=== PATIENT | female | born 1975 | race Caucasian/White ===

== ENCOUNTER 2017-02-21 21:33 | Emergency (ER) | payer SELFPAY ==
--- NOTE | ~2017-02-21 | ER ---
[facility] AGE[facility] 42 Y [address] ROOM: [place] [address] LOCATION: ED ADMIT DATE: 02/21/2017 ER/Outpatient Report DISCHARGE DATE: 02/21/2017 FAMILY PHYSICIAN: Jonathon Philip MD ATTENDING PHYSICIAN: Trev San Time of Arrival: 2137 hours. Time of Evaluation: 2146 hours. CHIEF COMPLAINT: Left leg swelling. HISTORY OF PRESENT ILLNESS: The patient states that she has had problems with varicose veins for the past several years, but since 02/18/2017, it has become more swollen, firm, and painful with activity. ALLERGIES: SHE HAS NO KNOWN ALLERGIES. CURRENT MEDICATIONS: No current medications. PAST MEDICAL HISTORY: Hypothyroidism. PAST SURGERIES: Tonsillectomy, cholecystectomy, , and hernia repair. SOCIAL HISTORY: She states she quit smoking 4 years ago. Only drinks alcohol on an occasional basis. Denies use of drugs. ROS: All negative other than those mentioned in the HPI. PHYSICAL EXAMINATION: VITAL SIGNS: She weighed 169 kg, blood pressure is 130/78, pulse is 64, respirations 16, temperature of 98.9, O2 saturation was 93% on room air. GENERAL: She is awake, alert, and oriented x4. SKIN: [place], warm, and dry. RESPIRATIONS: Even and nonlabored. EXTREMITIES: The patient has round, raised varicosity that is not draining at this time. It is on the left lower leg anterior portion just below the knee. She has strong pedal pulses. Area is slightly reddened around it. It is not PATIENT'S NAME: [facility] AGE: 42 Y [address] ROOM: [place] [address] LOCATION: ED ADMIT DATE: 02/21/2017 ER/Outpatient Report DISCHARGE DATE: 02/21/2017 FAMILY PHYSICIAN: Jonathon Philip MD ATTENDING PHYSICIAN: Trev San warm to touch. IMPRESSION: Inflamed varicose vein. PLAN: Home, rest, ice or heat to the area. Prescription was written for ibuprofen for inflammation and [place] for pain. She is to follow up with her primary provider or surgeon. She verbalized understanding. JENNIFER SWANSON MD DJ/tuan /[id number] d: 02/22/17 0308 t: 02/24/17 1826, OUTPATIENT REPORT
== END 2017-02-21 22:03 | disposition disaster alternative care site (69) ==
LOC: GMED 21:33
DX: I83.12 Varicose veins of left lower extremity with inflammation (principal); Z90.49 Acquired absence of other specified parts of digestive tract; Z90.89 Acquired absence of other organs; Z98.890 Other specified postprocedural states; Z87.891 Personal history of nicotine dependence